=== PATIENT | male | born 1980 | race Caucasian/White ===

== ENCOUNTER 2023-12-17 13:48 | Emergency (ER) | payer OTHER, SELFPAY ==
[2023-12-17 13:49] VITALS: BP 149/107; PULSE 108; RESP 16; TEMP 36.8; O2SAT 98; BMI 22.7
[2023-12-17 13:53] VITALS: BP 149/107; PULSE 108; O2SAT 98
[2023-12-17 14:00] VITALS: BP 146/91; PULSE 56; O2SAT 98
--- NOTE | 2023-12-17 14:01 | PC.NURSE ---
calling [facility] transfer [facility] at this time for possible transfer.
[2023-12-17] MEDS: ACETAMINOPHEN 500MG TAB 1000 MG PO (14:15)
[2023-12-17] MEDS: IBUPROFEN 600 MG TABLET PO (14:15)
[2023-12-17] MEDS: TET/DIPHTH/PERT-ADULT 0.5ML SYRINGE 0.5 ML IM (14:19)
--- NOTE | 2023-12-17 14:25 | PC.NURSE ---
Dr. Srivastava on phone with
[2023-12-17 14:35] VITALS: BP 97/80; PULSE 56; O2SAT 98
[2023-12-17] MEDS: OXYCODONE 5MG IMMEDIATE RELEASE TABLET 5 MG PO (14:50)
--- NOTE | 2023-12-17 15:14 | ED_ITS ---
Discharge Plan Disposition Patient Disposition: Home, Self-Care Chief Complaint: Wound/Laceration Referrals Follow up/Referrals: Provider,Referral, MD [Primary Care Provider] - See instructions Activity Restrictions/Add. Instructions Additional Instructions/Restrictions: Follow-up Wednesday or Wednesday in clinic with Dr. Trujillo to schedule surgery sometime next week. Call your family doctor to establish care for this visit to the emergency department and schedule follow-up within 48 hours to ensure improvement. If you have any worsening of your condition or any other concerning signs or symptoms, return to the emergency department or your primary care doctor for further evaluation. Clinical Impressions Clinical Impression: Laceration of flexor tendon of left thumb Instructions Patient Instructions: DI for Laceration Repair Print Language Print Language: Divehi Discharge ED Provider: Maurice Srivastava General Adult HPI General Chief complaint: Wound/Laceration Stated complaint: cut on left hand Time Seen by Provider: 12/17/23 13:57 Mode of Arrival: Ambulatory Source of Information: Patient Limitations: No Limitations Description of Symptoms (Recalled from ER Triage Doc. by RN): pt presents to Ed with laceration to left thumb. pt reports approx 10 mins ago, he was using a utility knife, it slipped and cut the thumb in the bend of the thumb. pt does not remember the last tetanus shot that he received. History of Present Illness HPI narrative: Please note that above description of symptoms, in this electronic medical record under categorization of recalled from ER triage doctor by RN are reflective of an initial nursing assessment, however, is not reflective of my full history and physical exam that was personally taken and clarified. Consequentially, this preceding description of symptoms, which may include the patient's categorized chief complaint in the EMR, do not reflect my personal cli nical impression, and the ultimate description of history of present illness and patient stated complaints should be deferred to this section of the note. Unless stated otherwise or congruent with this section of the note, additional signs, symptoms, or incongruence should be interpreted as inaccurate with my clinical impression. [facility] Disclaimer: The information contained in this section may have been updated after the patient was seen, as this information can be updated by other users. Social History Smoking Status: Current every day smoker alcohol intake: never current occupational status: employed Travel in the last 8 weeks: None ROS Obtained: Yes All systems reviewed & no additional complaints except as documented Physical Exam General General appearance: alert Head Head exam: atraumatic and normocephalic Eye Eye exam: Present normal appearance, PERRL and EOMI Neck Neck exam: Present normal inspection, full ROM and trachea midline Respiratory Respiratory exam: Absent respiratory distress, wheezes, stridor, accessory muscle use or prolonged expiratory phase Cardiovascular Cardiovascular exam: Present other (Pulses equal symmetric in upper and lower extremities) Abdominal Exam Abdominal exam: Present soft; Absent distention, tenderness or pulsatile mass Extremities Exam Extremities exam: Present other (No ability to flex DIP left thumb. 2 cm laceration overlying palmar aspect proximal phalanx left thumb. Vascularly intact, neurologically intact); Absent edema Neurological Exam Neurological exam: Present alert, oriented X3 and CN II-XII intact; Absent motor sensory deficit Skin Skin exam: Present warm and dry; Absent diaphoresis or erythema Medical Decision Making Medical Records Medical records reviewed: Yes I reviewed the patient's medical records. Doug Inquiry Pt receiving controlled substance: No Doug was queried for this patient: No Vital Signs: 12/17/23 13:49 Temperature 98.2 F Temperature Source Oral Pulse Rate [Left Radial] 108 H Respiratory Rate 16 Blood Pressure [Right Arm] 149/107 H Blood Pressure Mean [Right Arm] 121 02 Sat by Pulse Oximetry 98 Oxygen Delivery Method Room Air Orders (Tests/Meds): ED MEDICATIONS Discontinued Medications Generic Name Dose Route Start Last Admin Trade Name Yola PRN Reason Stop Dose Admin Acetaminophen 1,000 mg 12/17/23 14:01 12/17/23 14:15 Acetaminophen 500mg Tab PO 12/17/23 14:02 1,000 mg ONCE ONE Administration Ibuprofen 600 mg 12/17/23 14:01 12/17/23 14:15 Ibuprofen 600 Mg Tablet PO 12/17/23 14:02 600 mg ONCE ONE Administration Lidocaine 1 each 12/17/23 14:01 Lidocaine 5% Transdermal Patch TP 12/17/23 14:02 ONCE ONE Lidocaine HCl 20 ml 12/17/23 14:26 Lidocaine 1% 20ml Mdv SQ 12/17/23 14:27 ONCE ONE Oxycodone HCl 5 mg 12/17/23 14:45 12/17/23 14:50 Oxycodone 5mg Immediate Release Tablet PO 12/17/23 14:46 5 mg ONCE ONE Administration Tetanus/Reduced Diphtheria/Acell Pertussis 0.5 ml 12/17/23 14:01 12/17/23 14:19 Tet/Diphth/Pert-Adult 0.5ml Syringe IM 12/17/23 14:02 0.5 ml .ONCE ONE Administration Medical Decision Narrative: 43-year-old male no relevant medical history presenting with left thumb injury. 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 Came in for further evaluation. Pain is 8 out of 10, shooting, does not radiate. No other injury sustained. Unable to remember last tetanus. History obtained with patient. On arrival, patient appears to be in mild pain, but no acute distress. He does have a 2 cm laceration overlying the proximal phalanx of his left thumb on the palmar aspect. Is hemostatic. On deep inspection, able to see muscle, flexor tendon, but no probable bone. Patient given Tylenol, Motrin, oxycodone. Patient also given Tdap. Given new blade, no obvious foreign body on extensive irrigation and exam under local anesthesia, x-rays were considered, but not deemed necessary. Laceration was repaired, see laceration repair note. [facility] hand surgery was contacted and case was discussed at length, recommended following up on Wednesday with Dr. Trujillo in hand clinic. Because patient at baseline without signs or symptoms of clinical decompensation, deemed appropriate for discharge. Results were relayed to patient who voiced understanding and were agreeable to outpatient management and follow up. I discussed my clinical impression with patient and answered all questions. At this time, the evidence for any other entities in the differential is insufficient to warrant any further testing or ED observation. This was explained as well. Advisory was given that persistent or worsening symptoms require further evaluation. I confirmed the understanding of this discussion. Claims Account Specialist disclaimer Much of this encounter note is an electronic process analyst spoken language to printed text. Electronic process analyst of the spoken language may permit errors. Although I have reviewed the note, some errors may still exist. Procedures Laceration Laceration 1: Site: thumb Side (If applicable): left Size (cm): 2 Description: linear Depth: simple, single layer Local Anesthetic: lidocaine 1% Amount of anesthesia used (mL): 10 Pre-repair: wound explored and irrigated extensively Skin layer closed with: nylon Size (cm): 3-0 Number of sutures: 7 Technique: simple, interrupted Critical Care Critical Care Time Critical Care Time: No
[2023-12-17 15:40] VITALS: BP 155/89; PULSE 85; RESP 20; TEMP 36.8; O2SAT 98
== END 2023-12-17 15:45 | disposition home or self-care (01) ==
PROVIDERS: Emergency Provider Emergency Medicine
DX: S61.012A Laceration without foreign body of left thumb without damage to nail, initial encounter (principal); W26.8XXA Contact with other sharp object(s), not elsewhere classified, initial encounter; Z23 Encounter for immunization
CPT/HCPCS: 12002; 90471; 90715; 99283